=== PATIENT | female | born 1990 | race Caucasian/White ===

== ENCOUNTER 2019-07-07 19:46 | Emergency (ER) | payer SELFPAY ==
[~2019-07-07] VITALS: Ht 152.4 cm; Wt 64.0 kg
[2019-07-07 20:03] VITALS: BP 104/65
--- NOTE | 2019-07-07 20:15 | PHYS DOC ---
Past History Past Medical History: No Pertinent History Past Surgical History: No Surgical History Additional Smoking Information: 04/05 ppd Alcohol Use: Occasionally Adult General Chief Complaint Chief Complaint: FINGER INJURY HPI HPI Patient is a 29-year-old otherwise healthy female presents with right ring finger injury. She states about 10 days ago she shut her finger in the car door. She said she's had quite a bit of pain since that time. She is worried because the nail on that finger is coming off. She is concerned that there may be some underlying infection in the area.[] There are no other injuries. Review of Systems Review of Systems Constitutional: Denies fever or chills [] Eyes: Denies change in visual acuity, redness, or eye pain [] HENT: Denies nasal congestion or sore throat [] Respiratory: Denies cough or shortness of breath [] Cardiovascular: No additional information not addressed in HPI [] GI: Denies abdominal pain, nausea, vomiting, bloody stools or diarrhea [] : Denies dysuria or hematuria [] Musculoskeletal: Per history of present illness[] Integument: Denies rash or skin lesions [] Neurologic: Denies headache, focal weakness or sensory changes [] Endocrine: Denies polyuria or polydipsia [] All other systems were reviewed and found to be within normal limits, except as documented in this note. Physical Exam Physical Exam Constitutional: Well developed, well nourished, no acute distress, non-toxic appearance. [] HENT: Normocephalic, atraumatic, bilateral external ears normal, oropharynx moist, no oral exudates, nose normal. [] Eyes: PERRLA, EOMI, conjunctiva normal, no discharge. [] Neck: Normal range of motion, no tenderness, supple, no stridor. [] Cardiovascular:Heart rate regular rhythm, no murmur [] Lungs & Thorax: Bilateral breath sounds clear to auscultation [] Abdomen: Bowel sounds normal, soft, no tenderness, no masses, no pulsatile masses. [] Skin: Warm, dry, no erythema, no rash. [] Back: No tenderness, no CVA tenderness. [] Extremities: Right ring finger shows no obvious deformity there is a partial nail avulsion no obvious signs of infection she is able to flex and extend at the DIP. [] Neurologic: Alert and oriented X 3, normal motor function, normal sensory function, no focal deficits noted. [] Psychologic: Affect normal, judgement normal, mood normal. [] Current Patient Data Vital Signs Vital Signs Date Time Temp Pulse Resp B/P (MAP) Pulse Ox O2 Delivery O2 Flow Rate FiO2 07/07/19 20:03 103 16 104/65 (78) 97 Room Air EKG EKG [] Radiology/Procedures Radiology/Procedures [] Course & Med Decision Making Course & Med Decision Making Pertinent Labs and Imaging studies reviewed. (See chart for details) [] Dragon Disclaimer Dragon Disclaimer This electronic medical record was generated, in whole or in part, using a voice recognition dictation system. Departure Departure: Impression: Primary Impression: Fingernail avulsion, partial Additional Impression: Contusion of right ring finger Disposition: HOME, SELF-CARE Condition: STABLE Referrals: PCP,NO (PCP) Patient Instructions: Contusion, Nail Avulsion Injury Additional Instructions: Return to the emergency department with any new or concerning symptoms Problem Qualifiers Primary Impression: Fingernail avulsion, partial Encounter type: initial encounter Qualified Codes: S61.309A - Unspecified open wound of unspecified finger with damage to nail, initial encounter Additional Impression: Contusion of right ring finger Encounter type: initial encounter Damage to nail status: with damage Qualified Codes: S60.141A - Contusion of right ring finger with damage to nail, initial encounter SPENCER MISTRY DO Jul 07, 2019 20:15
== END 2019-07-07 20:27 | disposition home or self-care (01) ==
LOC: ER 19:46
DX: S61.304A Unspecified open wound of right ring finger with damage to nail, initial encounter (principal); S60.041A Contusion of right ring finger without damage to nail, initial encounter; F17.200 Nicotine dependence, unspecified, uncomplicated; W23.0XXA Caught, crushed, jammed, or pinched between moving objects, initial encounter; Y93.89 Activity, other specified; Y92.89 Other specified places as the place of occurrence of the external cause; Y99.8 Other external cause status
CPT/HCPCS: 99281

== ENCOUNTER 2021-02-15 11:29 | Emergency (ER) | payer SELFPAY ==
[~2021-02-15] VITALS: Ht 152.4 cm; Wt 63.6 kg
[2021-02-15 11:38] VITALS: BP 128/81
[2021-02-15 13:58] LABS: BACTERIA,URINE 0 /HPF (0-FEW); BILIRUBIN,URINE NEG (NEG); CLARITY,URINE CLEAR; COLOR,URINE YELLOW; GLUCOSE,URINE NEG (NEG); NITRITE,URINE NEG (NEG); RBC,URINE OCC /HPF (0-2); SQUAMOUS EPITHELIAL CELL,UR OCC /LPF; WBC,URINE 0 /HPF (0-4)
[2021-02-15 14:05] LABS: U PREG PATIENT NEGATIVE (NEG)
[2021-02-15] MEDS ORDERED: KETOROLAC 60 MG/2 ML VIAL. IM ONE (14:15)
[2021-02-15] MEDS ORDERED: methylPREDNISolone ACETATE 80 MG/ML VIAL. IM ONE (14:15)
--- NOTE | 2021-02-15 14:40 | PHYS DOC ---
Past History Past Medical History: No Pertinent History (MASTER MORROW APRN) Past Surgical History: Other Additional Past Surgical Histo: tubes (MASTER MORROW APRN) Alcohol Use: None (MASTER MORROW APRN) Adult General Chief Complaint Chief Complaint: BACK PAIN OR INJURY HPI HPI Patient is a 30-year-old female who presents emergency department complaining of back pain for the past 5 years ever since she had her last child. Patient reports increased pain over the past several days on the right side of mid back area. Patient denies recent injury. Denies burning on urination or increased urinary frequency, denies seeing blood in her urine, denies vaginal discharge, denies STI concerns. Patient reports her last menstrual cycle started yesterday and this is the normal time for her to start. Patient denies taking [id number] or prescription medications for her 10 out of 10 pain. Patient denies other physical complaints or physical concerns. (MASTER MORROW APRN) Review of Systems Review of Systems 14 body systems of review of systems have been reviewed. See HPI for pertinent positives and negative responses, otherwise all other systems are negative, nonpertinent or noncontributory. Constitutional: Negative except as outlined in HPI above. Skin: Negative except as outlined in HPI above. Eyes: Negative except as outlined in HPI above. HENT: Negative except as outlined in HPI above. Respiratory: Negative except as outlined in HPI above. Cardiovascular: Negative except as outlined in HPI above. GI: Negative except as outlined in HPI above. : Negative except as outlined in HPI above. Musculoskeletal: Negative except as outlined in HPI above. Integument: Negative except as outlined in HPI above. Neurologic: Negative except as outlined in HPI above. Endocrine: Negative except as outlined in HPI above. Lymphatic: Negative except as outlined in HPI above. Psychiatric: Negative except as outlined in HPI above. (MASTER MORROW APRN) Current Medications Current Medications Current Medications Medications (Trade) Dose Ordered Sig/Jeronimo Start Time Stop Time Status Last Admin Dose Admin Ketorolac Tromethamine (Toradol Im) 60 mg 1X ONCE 02/15/21 14:15 02/15/21 14:21 DC Methylprednisolone Acetate (DEPO-Medrol IM) 80 mg 1X ONCE 02/15/21 14:15 02/15/21 14:21 DC (MASTER MORROW APRN) Allergies Allergies Allergies Coded Allergies Type Severity Reaction Last Updated Verified Penicillins Adverse Reaction Mild rash 07/07/19 Yes (MASTER MORROW APRN) Physical Exam Physical Exam Constitutional: Well developed, well nourished, no acute distress, non-toxic appearance. 30-year-old female in no apparent distress. HENT: Normocephalic, atraumatic. Eyes: Conjunctiva normal, no discharge. Neck: Normal range of motion, no stridor. Cardiovascular: No cyanosis appreciated, distal cap refill less than 2 seconds. Lungs & Thorax: Patient is in no respiratory distress, no audible adventitious lung sounds appreciated. Abdomen: Nontender, no abnormalities noted. Skin: Warm, dry, no erythema, no rash. Back: No midline spinal tenderness, no deformities. No left-sided CVA TTP, positive right-sided CVA TTP. No bruising or crepitus appreciated of the back. Extremities: No tenderness, no cyanosis, no clubbing, ROM intact, no edema. Neurologic: Alert and oriented X 3, normal motor function, normal sensory function, no focal deficits noted. Psychologic: Affect normal, judgement normal, mood normal. (MASTER MORROW APRN) Current Patient Data Vital Signs Vital Signs Date Time Temp Pulse Resp B/P (MAP) Pulse Ox O2 Delivery O2 Flow Rate FiO2 02/15/21 11:38 98.3 86 16 128/81 (97) 99 Room Air Lab Results Laboratory Tests Test 02/15/21 12:43 Urine Collection Type Unknown Urine Color Yellow Urine Clarity Clear Urine pH 7.0 Urine Specific [place]ague 1.020 Urine Protein Neg (NEG-TRACE) Urine Glucose (UA) Neg mg/dL (NEG) Urine Ketones (Stick) Neg mg/dL (NEG) Urine Blood Trace (NEG) Urine Nitrite Neg (NEG) Urine Bilirubin Neg (NEG) Urine Urobilinogen Dipstick 1.0 mg/dL (0.2 mg/dL) Urine Leukocyte Esterase Neg (NEG) Urine RBC Occ /HPF (0-2) Urine WBC 0 /HPF (0-4) Urine Squamous Epithelial Cells Occ /LPF Urine Bacteria 0 /HPF (0-FEW) Urine Test Negative (NEG) (MASTER MORROW APRN) EKG EKG [] (MASTER MORROW APRN) Radiology/Procedures Radiology/Procedures [] (MASTER MORROW APRN) Heart Score C/O Chest Pain: No Risk Factors: Risk Factors: DM, Current or recent (<one month) smoker, HTN, HLP, family history of CAD, obesity. Risk Scores: Risk Factors: DM, Current or recent (<one month) smoker, HTN, HLP, family history of CAD, obesity. (MASTER MORROW APRN) Course & Med Decision Making Course & Med Decision Making Pertinent Labs and Imaging studies reviewed. (See chart for details) 30-year-old female, vital signs reviewed, presents emergency department concerning right sided mid back pain for the past 5 years. Patient's physical examination most likely musculoskeletal chronic back pain however does have CVA tenderness on the right, will order urinalysis assay with test to rule out infectious process/. Patient's urine is not infected, there was trace blood most likely contaminated catch has patient is on menstrual cycle. This is unlikely a kidney infection or urinary tract infection. This is unlikely kidney stone. Discussed findings with patient, will give IM injection of Toradol and Depo-Medrol. Discussed with patient strict follow-up with primary care for ongoing evaluation and pain management of her chronic back pains. Patient gave verbal understanding of and is amenable to ED discharge planning. Discussed with the patient all findings and diagnostic testing as well as the need to follow-up with their primary care provider for further evaluation and treatment or return to the ED if any new or worsening symptoms. Strict return precautions were also discussed at length, the patient voiced understanding and agreement with the discharge planning. The patient was nontoxic in appearance, in no apparent distress, and hemodynamically stable at the time of disposition. (MASTER MORROW APRN) Course & Med Decision Making I was the Attending physician on the above date of service of this patient. This patient was evaluated, examined, treated, and dispositioned from the emergency department by the mid-level practitioner. Although I was working at the time , no assistance was requested. Electronically signed, Collette Covington DO (COLLETTE COVINGTON DO) Zoran Disclaimer Zoran Disclaimer This electronic medical record was generated, in whole or in part, using a voice recognition dictation system. (MASTER MORROW APRN) Departure Departure: Impression: Primary Impression: Chronic back pain Disposition: 01 HOME / SELF CARE / HOMELESS Condition: GOOD Referrals: PCP,NO (PCP) Patient Instructions: Back Pain, Adult Additional Instructions: You were seen today in the emergency department for back pain. You have been experiencing this back pain for several years now. A urinalysis assay with test was done today to rule out any infection or possible kidney stone that might be causing back pains. There was no infection in your urine. No signs of kidney stones. As we discussed you were given a intramuscular injection of pain medicine along with a intramuscular injection of a steroid to help with your chronic back pain issues. Please follow-up with a primary care physician this week to establish ongoing health care and ongoing investigation of your chronic back pains. You may use any primary care physician of your choice however you may consider using the [facility] located at [facility] [place] [address] and [facility], [id number], other telephone number is area code [phone]. Thank you for visiting our Emergency Department. It was a pleasure taking care of you today in the emergency department and we appreciate you trusting us with your care. If any additional problems come up don't hesitate to return to visit us. Please follow up with your primary care provider so they can plan additional care if needed and know about the problem that you had. If symptoms worsen come back to the Emergency Department. Any concerning symptoms that start such as chest pain, shortness of air, weakness or numbness on one side of the body, running high fevers or any other concerning symptoms return to the ER. EMERGENCY DEPARTMENT GENERAL DISCHARGE INSTRUCTIONS Thank you for coming to [facility] (ED) today and trusting us with you care. We trust that you had a positivie experience in our Emergency Department. If you wish to speak to the department management, you may call the director at [phone]. YOUR FOLLOW UP INSTRUCTIONS ARE FOLLOWS: 1. Do you have a private Doctor? If you do not have a private doctor, please ask for a resource list of physicians or clinics that may be able to assist you with follow up care. 2. The Emergency Physician has interpreted your x-rays. The X-Ray specialist will also review them. If there is a change in the findings, you will be notified in 48 hours when at all possible. 3. A lab test or culture has been done, your results will be reviewed and you will be notified if you need a change in treatment. ADDITIONAL INSTRUCTIONS AND INFORMATION: 1. Your care today has been supervised by a physician who is specially trained in emergency care. Many problems require more than one evaluation for a complete diagnosis and treatment. We recommend that you schedule your follow up appointment as recommended to ensure complete treatment of you illness or injury. If you are unable to obtain follow up care and continue to have a problem, or if your condition worsens, we recommend that you return to the ED. 2. We are not able to safely determine your condition over the phone nor are we able to give sound medical advice over the phone. For these safety reasons, if you call for medical advice we will ask you to come to the ED for further evaluation. 3. If you have any questions regarding these discharge instructions please call the ED at [phone]. SAFETY INFORMATION: In the interest of safety, wellness, and injury prevention; we encourage you to wear your sealbelt, if you smoke; quite smoking, and we encourage family to use a protective helmet for bicycling and other sporting events that present an increased risk for head injury. IF YOUR SYMPTOMS WORSEN OR NEW SYMPTOMS DEVELOP, OR YOU HAVE CONCERNS ABOUT YOUR CONDITION; OR IF YOUR CONDITION WORSENS WHILE YOU ARE WAITING FOR YOUR FOLLOW UP APPOINTMENT; EITHER CONTACT YOUR PRIMARY CARE DOCTOR, THE PHYSICIAN WHOSE NAME AND NUMBER YOU WERE GIVEN, OR RETURN TO THE ED IMMEDIATELY. Problem Qualifiers Primary Impression: Chronic back pain Back pain location: thoracic back pain Back pain laterality: right Qualified Codes: M54.6 - Pain in thoracic spine; G89.29 - Other chronic pain MASTER MORROW APRN Feb 15, 2021 14:39 COLLETTE COVINGTON DO Feb 16, 2021 07:05
== END 2021-02-15 14:58 | disposition home or self-care (01) ==
LOC: ER 11:29
DX: G89.29 Other chronic pain (principal); M54.6 Pain in thoracic spine; Z88.0 Allergy status to penicillin
CPT/HCPCS: 81001; 81025; 96372; 99284; J1040; J1885; 99285-25